=== PATIENT | male | born 1985 | race Caucasian/White ===

== ENCOUNTER 2020-01-16 10:19 | Outpatient (REF) | payer MEDICAID, SELFPAY | END 2020-01-16 10:20 | disposition home or self-care (01) | LOC: HO.LAB 10:19 | PROVIDERS: Visit Provider Internal Medicine | DX: Z20.828 Contact with and (suspected) exposure to other viral communicable diseases (principal) | CPT/HCPCS: U0003 ==

== ENCOUNTER 2020-01-21 13:46 | Outpatient (RCR) | payer MEDICAID, SELFPAY | END 2020-04-16 12:58 | disposition other institution (70) | LOC: HO.PT 13:46 | DX: M54.5 Low back pain (principal) | CPT/HCPCS: 97110; 97140; 97162 ==

== ENCOUNTER 2020-02-18 13:12 | Outpatient (REF) | payer MEDICAID, SELFPAY | END 2020-02-18 13:13 | disposition home or self-care (01) | LOC: HO.LAB 13:12 | PROVIDERS: Visit Provider Internal Medicine | DX: Z20.828 Contact with and (suspected) exposure to other viral communicable diseases (principal) | CPT/HCPCS: C9803; U0003 ==